=== PATIENT | male | born 1965 | race Asian ===

== ENCOUNTER 2018-08-29 12:25 | Emergency (ER) | payer OTHER ==
[~2018-08-29] VITALS: Ht 167.6 cm; Wt 64.4 kg
[2018-08-29 12:46] VITALS: Ht 167.6 cm; Wt 64.4 kg
[2018-08-29 14:28] LABS: BASOPHIL % 0.3 % (0-2); PLATELET COUNT 247 x10^3mcL (130-400); RED CELL DISTRIBUTION WIDTH 13.2 % (11.5-14.5)
[2018-08-29 14:50] LABS: CALCIUM 8.7 mg/dL (8.5-10.1); CARBON DIOXIDE 30.9 mmol/L (21-32); CHLORIDE SERUM 103 mmol/L (98-107); CREATININE SERUM 0.8 mg/dL (0.7-1.3); GFR1 > 60 mL/min; GLUCOSE SERUM 96 mg/dL (74-106); POTASSIUM SERUM 3.5 mmol/L (3.5-5.1); SODIUM SERUM 142 mmol/L (136-145)
[2018-08-29 14:54] LABS: ALBUMIN 3.7 g/dL (3.4-5.0); ALKALINE PHOSPHATASE 72 U/L (46-116); ALT/SGPT 31 U/L (16-63); AST/SGOT 25 U/L (15-37); BILIRUBIN TOTAL 0.6 mg/dL (0.20-1.00); TOTAL PROTEIN, SERUM 7.4 g/dL (6.4-8.2)
[2018-08-29 16:12] VITALS: BP 146/95
== END 2018-08-29 16:12 | disposition short-term general hospital (02) ==
LOC: ED 12:31
PROVIDERS: Specialist
DX: S12.9XXA Fracture of neck, unspecified, initial encounter (principal); R07.89 Other chest pain; M25.519 Pain in unspecified shoulder; Z86.19 Personal history of other infectious and parasitic diseases; V49.88XA Car occupant (driver) (passenger) injured in other specified transport accidents, initial encounter; Y93.89 Activity, other specified; Y92.89 Other specified places as the place of occurrence of the external cause; Y99.8 Other external cause status
CPT/HCPCS: 36415; Q9967